=== PATIENT | male | born 1955 ===

== ENCOUNTER 2020-04-14 16:43 | Outpatient (REF) | payer BC, SELFPAY ==
[2020-04-15 13:52] LABS: COVID-19 RT-PCR UVMMC Result Negative (Negative)
== END 2020-04-14 16:44 | disposition home or self-care (01) ==
LOC: NCHCN 16:43
PROVIDERS: Visit Provider Internal Medicine
DX: Z20.822 Contact with and (suspected) exposure to COVID-19 (principal)
CPT/HCPCS: U0003